=== PATIENT | male | born 1975 | race Caucasian/White ===

== ENCOUNTER 2016-11-15 20:35 | Emergency (ER) | payer SELFPAY ==
[~2016-11-15] VITALS: Ht 172.7 cm; Wt 107.5 kg
[2016-11-15 20:47] VITALS: BP 140/71
--- NOTE | 2016-11-15 22:34 | NUR ---
Patient ambulated to bed 06.
--- NOTE | 2016-11-15 22:35 | NUR ---
PT C/O LEFT MIDDLE FINGER SWLLING AND PAIN, FOR 3 DAYS
--- NOTE | 2016-11-15 22:56 | NUR ---
Dr. Wynne evaluating patient at bedside.
[2016-11-15] MEDS ORDERED: NEOMYCIN/POLYMYXIN/BACITRACIN 0.9 GM/1 PKT TP ONE (23:00)
[2016-11-15] MEDS ORDERED: LIDOCAINE 1% 500 MG/50 ML VIAL INJ ONE (23:00)
--- NOTE | 2016-11-15 23:10 | NUR ---
Dr. Wynne at bedside.
--- NOTE | 2016-11-15 23:10 | NUR ---
DR. STANLEY DID THE PROCEDURE (I & D) AT BEDSIDE AND PT TOLERATED WELL
--- NOTE | 2016-11-15 23:30 | NUR ---
Patient discharged with v/s stable BY DR. STANLEY. Written and verbal after care instructions given and explained. Patient alert, oriented and verbalized understanding of instructions. Ambulatory with steady gait. All questions addressed prior to discharge. ID band removed. Patient advised to follow up with PMD. Rx of KEFLEX 500MG PO, NAPROSYN 500MG PO given. Patient educated on indication of medication including possible reaction and side effects. Opportunity to ask questions provided and answered.
[2016-11-15 23:34] VITALS: BP 129/68
== END 2016-11-15 23:30 | disposition home or self-care (01) ==
LOC: MED 20:35
DX: L03.012 Cellulitis of left finger (principal); L02.512 Cutaneous abscess of left hand
CPT/HCPCS: 10060; 99283; J2001